=== PATIENT | female | born 1995 ===

== ENCOUNTER → 2024-04-28 15:09 | Outpatient (CLI) | payer OTHER, MEDICAID, SELFPAY | PROVIDERS: Visit Provider Student in an Organized Health Care Education/Training Program | DX: N89.8 Other specified noninflammatory disorders of vagina (principal); Z11.3 Encounter for screening for infections with a predominantly sexual mode of transmission | CPT/HCPCS: 87480; 87491; 87510; 87563; 87591; 87660 ==

== ENCOUNTER → 2024-04-30 08:18 | Outpatient (CLI) | payer OTHER, MEDICAID, SELFPAY ==
--- NOTE | 2024-04-30 08:19 | DI.RAD.S_ITS ---
PROCEDURE: HL HYSTEROSAPINGOGRAPHY INDICATIONS: Infertility COMPARISON: None. FINDINGS: Patient had a documented negative test prior to the study. Following speculum insertion, a balloon-tip catheter was inserted into the cervical canal, and secured by inflating the balloon. Contrast was then injected into the endometrial canal by the deliverer food. Uterus: The uterine cavity appears normal in size and morphology, without synechiae or masses. Fallopian tubes: Contrast opacifies the bilateral uterine cornua as well as segments of the left fallopian tube on the more delayed images. No contrast visualized within the right fallopian tube. No definite dispersion of contrast into the peritoneal cavity on either side. IMPRESSION: Unremarkable appearance of the endometrial cavity with only partial opacification of the left fallopian tube. No evidence for dispersion of contrast into the peritoneal cavity. No contrast opacification of the right fallopian tube. Please see separate report by deliverer food for further details. Dictated by: Kalpesh Wolf M.D. on 04/30/2024 at 9:58 Approved by: Kalpesh Wolf M.D. on 04/30/2024 at 10:07
--- NOTE | 2024-05-05 17:26 | PM.PROC.1 ---
Procedures Date/Time Date of procedure: 04/30/24 Time of procedure: 13:30 General Procedure description: HSG After informed consent was obtained, the pt was placed on the fluor table in a pelvic tilt. A speculum was placed. The cervix was cleaned x 3 with Betadine. A single-tooth tenaculum was placed. The HSG catheter was placed and the baloon filled with 3cc of air. The speculum was removed. Isovue 300 was injected under direct fluoroscopic exam. The uterus filled and was normal in contour. The left tube partially filled. The right tube did not fill. The pressure in the uterus pushed the HSG balloon out. The HSG was reattempted. There was a lot of pressue in the syringe. The pressure pushed the balloon out again. The single tooth tenaculum was removed from the cervix. The patient tolerated the procedure well. Complications: none
== END ==
PROVIDERS: Referring Provider Obstetrics & Gynecology; Visit Provider Obstetrics & Gynecology
DX: Z31.69 Encounter for other general counseling and advice on procreation (principal)
CPT/HCPCS: 58340; 74740; Q9967